=== PATIENT | male | born 1980 | race African-American/Black ===

== ENCOUNTER 2018-12-06 12:57 | Outpatient (CLI) | payer OTHER ==
--- NOTE | 2018-12-06 15:34 | CT ---
CT RIGHT WRIST: Date: 12/06/18 PROVIDED CLINICAL HISTORY: Scaphoid fracture. FINDINGS: There is a displaced fracture of the scaphoid waist. There is volar displacement of the distal pole o f the scaphoid, which is also rotated dorsally with respect to the proximal scaphoid. There are sever al minute ossific foci present at the volar aspect of the distal carpal row presumably reflecting fra cture fragments related to the scaphoid. No additional fracture is evident. Alignment appears otherwise anatomic. Joint spaces appear preserve d. No regional joint effusion is evident. The soft tissues appear unremarkable in their unenhanced CT appearance. There is no evidence for density ulceration involving the proximal pole of the scaphoid to suggest os teonecrosis. IMPRESSION: Displaced and rotated scaphoid waist fracture without evidence for proximal pole osteonecrosis. Sever al small interarticular bodies are present in the volar aspect of the mid carpal joint. POS: [facility]
== END 2018-12-06 12:58 | disposition home or self-care (01) ==
LOC: BICCT 12:57
PROVIDERS: ATTEND Orthopaedic Surgery Hand Surgery
DX: S62.024D Nondisplaced fracture of middle third of navicular [scaphoid] bone of right wrist, subsequent encounter for fracture with routine healing (principal)

== ENCOUNTER 2019-01-11 09:36 | Day surgery (SDC) | payer OTHER ==
[2019-01-10 14:08] VITALS: BMI 29.7
[~2019-01-11 09:36] MED LIST: Dexamethasone 20 MG/5 ML VIAL ONE; Lidocaine 1% PF 5 ML VIAL ONE; Ondansetron PF 4 MG/2 ML Vial ONE; PROPOFOL 200 MG/20 ML VIAL ONE; ePHEDrine 50 MG/ML VIAL ONE
[2019-01-11] MEDS ORDERED: Bupivacaine HCl 0.5%/Epinephrine 1:200,000/PF 30 ml Vial ONE (09:46)
[2019-01-11 10:29] LABS: #Basophils 0.1 thou/uL (0.0-0.2); #Eosinphils 0.2 thou/uL (0.0-0.7); #Lymphocytes 2.5 thou/uL (1.20-3.40); #Monocytes 0.5 thou/uL (0.11-0.59); #Neutrophils 2.9 thou/uL (1.40-6.50); %Basophils 1.1 % (0.0-1.0); %Eosinophils 2.8 % (0.0-10.0); %Lymphocytes 40.4 % (21.0-51.0); %Monocytes 8.6 % (0.0-10.0); %Neutrophils 47.1 % (42.0-75.0); Hemoglobin 14.9 g/dL (14.0-18.0); Mean Corpuscular HGB CONC 33.3 g/dL (32.0-36.0); Mean Corpuscular Hemoglobin 29.8 pg (27.0-31.0); Mean Corpuscular Volume 89.6 fL (78.0-98.0); Mean Platelet Volume 7.3 fL (7.4-10.4); Platelet Count 218 thou/uL (130-400); RBC Distribution Width 12.1 % (11.5-14.5); Red Blood Cell (RBC) Count 5.01 mill/uL (4.70-6.10); White Blood Cell (WBC) Count 6.2 thou/uL (4.8-10.8)
[2019-01-11 11:01] LABS: Anion Gap 11 mmol/L (10-20); BUN (Urea Nitrogen) 10 mg/dL (8.9-20.6); Calc. Creatinine Clearance 105 mL/min (70-130); Calcium 9.5 mg/dL (7.8-10.44); Carbon Dioxide 28 mmol/L (22-29); Chloride 102 mmol/L (98-107); Estimated GFR-MDRD 69; Glucose 247 mg/dL (70-105); Potassium 4.8 mmol/L (3.5-5.1); Sodium 136 mmol/L (136-145)
[2019-01-11 12:21] LABS: Bilirubin Negative (Negative); Blood, Urine Negative (Negative); Clarity CLEAR (Clear); Glucose, Urine (Dipstick) >=1000 mg/dL (Negative); Leukocyte Negative (Negative); Nitrite Negative (Negative); Protein, Urine (Dipstick) Trace mg/dL (Neg-Trace); Specific Gravity, Urine 1.039 (1.002-1.036)
[2019-01-11 12:28] LABS: Bacteria/HPF None Seen HPF (None Seen); Hyaline Casts/LPF 0-3 HYALINE CAST LPF (0-3 Hyaline); Pathc Cast-AUWi Flag 0.13 (0-2.49); RBC/HPF 0-3 HPF (0-3); Squamous Epithelial None Seen HPF (0-3); WBC/HPF 0-3 HPF (0-3)
[2019-01-11] MEDS ORDERED: Midazolam HCl 2 mg/2 ml Vial ONE (14:11)
[2019-01-11] MEDS ORDERED: Fentanyl 100 MCG/2 ML VIAL ONE ×2 (14:11→16:02)
[2019-01-11] MEDS ORDERED: Bupivacaine PF 0.5% 30 ML VIAL ONE (16:00)
[2019-01-11] MEDS ORDERED: Bacitracin Zinc Ointment 30 gm TUBE ONE (16:00)
[2019-01-11] MEDS ORDERED: Sodium Chloride 0.9% 10 ML ONE (16:09)
--- NOTE | 2019-01-11 20:18 | RAD ---
RIGHT WRIST THREE VIEW: 01/11/19 HISTORY: ORIF. COMPARISON: None. FINDINGS: Multiple images were obtained from the operating room. Compression screws seen through the scaphoid. IMPRESSION: Satisfactory postoperative appearance. POS: SUSAN
[2019-01-11] MEDS ORDERED: Promethazine HCl 25 MG/ML VIAL SLOW IVP PRN (20:37)
[2019-01-11] MEDS ORDERED: Ondansetron HCl/PF 4 MG/2 ML Vial IVP PRN (20:37)
[2019-01-11] MEDS ORDERED: Promethazine HCl 25 MG/ML VIAL IM PRN (20:37)
--- NOTE | 2019-01-12 13:32 | OP ---
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 Scaphoid nonunion, but vascularized. PROCEDURE PERFORMED: 1. Bone graft for nonunion, right scaphoid. 2. Internal fixation with open treatment, with 22 Synthes compression screw headless 3.0. 3. A short-arm splint was applied. INDICATIONS: The patient with an almost 6-month old fracture, did not heal. CT scan and MRI scan did show lack of union. Clinical radiograph showed lack of union and there was excellent vascularity. TOURNIQUET TIME: 120 minutes. ESTIMATED BLOOD LOSS: 15 mL. DESCRIPTION OF PROCEDURE: After successful general endotracheal anesthesia, the limb was prepped and draped. We outlined a volar approach to the scaphoid, exsanguinated the limb and inflated tourniquet to 250 mmHg pressure. We gave Marcaine injection here of 20 cc along the palm side and 10 on the dorsal side. Once we had done this, we proceeded to enter the flexor carpi radialis tendon and a sheath through the skin, then we entered the bed of flexor carpi radialis until we reached the appropriate capsule. The capsule was opened, identified the scaphoid, and using the C-arm and K-wire, was able to identify the area of the bone defect. We then shelled out the residue of the nonunion, until we reached bleeding proximal portion and then punctate bleeding in the distal portion. We then drilled the defect completely to petal the region to increase blood supply, then we noticed we would need some bone graft to make it stable as we had not created about 3 to 4 mm defect by 4 mm. The patient then had the wound created on the dorsum, just slightly radial to the distal tubercle and approximately 5 mm proximal to the distal tubercle for appropriately measured bone graft after we had placed provisional fixation with a K-wire in appropriate frontal sagittal plane and with no angulation of humpback deformity for the scaphoid nonunion once debrided as listed above. We harvested the appropriate size rectangular bone graft, approximately 8 mm wide by 6 mm tall by 3 mm long and then placed it with a cortical piece and on the radial styloid side and visually fixed this. We then passed a screw by making a small fragment shaped wedge over the articular surface of the trapezium down the center of the scaphoid in the frontal sagittal plane with appropriate angulation placed in the sagittal plane perfectly as well. There was no humpback deformity. Bone graft extra was packed in. Once we placed compression screws using drill, measure, screw technique and the patient had excellent result from the surgery. The screw was of appropriate length. Released the tourniquet, obtained hemostasis. We closed the capsule with a 2-0 Vicryl undyed in a running suture. We closed the flexor carpi radialis with the same type suture. The subcutaneous closure was accomplished with a running 4-0 Monocryl and then a 4-0 nylon mattress interrupted to the skin. The patient had a bulky dressing applied, left the operating room without evidence of anesthetic or operative complication. A short-arm splint was applied. The patient left the operating room without complication. Job ID: [id number]
== END 2019-01-11 21:52 | disposition home or self-care (01) ==
LOC: SDC 09:36
PROVIDERS: ATTEND Orthopaedic Surgery Hand Surgery
PROC: 0PU Upper Bones, Supplement (ICD-10-PCS; principal; 2019-01-11)
PROC: 0PSM04Z Reposition Right Carpal with Internal Fixation Device, Open Approach (ICD-10-PCS; principal; 2019-01-11)
DX: S62.021K Displaced fracture of middle third of navicular [scaphoid] bone of right wrist, subsequent encounter for fracture with nonunion (principal); E11.9 Type 2 diabetes mellitus without complications; I10 Essential (primary) hypertension; E78.00 Pure hypercholesterolemia, unspecified; K21.9 Gastro-esophageal reflux disease without esophagitis; Z79.899 Other long term (current) drug therapy; Y99.0 Civilian activity done for income or pay
CPT/HCPCS: 36416; 76000; 80048; 81001; 85025; 85652; C1713; J0670; J1100; J2001; J2250; J2405; J2704; J3010; J3490; S0020

== ENCOUNTER 2020-02-14 08:05 | Outpatient (CLI) | payer OTHER | END 2020-02-14 08:06 | disposition home or self-care (01) | PROVIDERS: ATTEND Family Medicine | DX: S62.001D Unspecified fracture of navicular [scaphoid] bone of right wrist, subsequent encounter for fracture with routine healing (principal); M24.531 Contracture, right wrist; Z98.890 Other specified postprocedural states ==